=== PATIENT | female | born 1975 | race Caucasian/White ===

== ENCOUNTER → 2017-02-09 | Outpatient (CLI) | payer MEDICAID ==
--- NOTE | 2017-02-09 14:19 | REPMRS ---
Patient History The patient states she had a clinical breast exam in September 2016. Patient had first child at age 32. Family history of breast cancer in maternal aunt and colorectal cancer in maternal grandmother. Digital Mammo Screening Bilat: February 09, 2017 - Exam #: [id number] Bilateral CC and MLO view(s) were taken. Technologist: Arlen Thomas, Technologist Prior study comparison: December 30, 2015, bilateral digital mammo screening bilat performed at [facility]. October 27, 2014, bilateral digital mammo screening bilat performed at [facility]. FINDINGS: There are scattered fibroglandular densities. There has been no change in the appearance of the mammogram from the prior studies. There is a mild amount of residual fibroglandular tissue which is fairly symmetric. There is no interval development of dominant mass, architectural distortion, or clustered microcalcification suggestive of malignancy. ASSESSMENT: BI-RADS/ACR category 1 mammogram. Negative. Recommendation Routine screening mammogram in 1 year (for women over age 40). This mammogram was interpreted with the aid of an FDA-approved computer-aided dectection system. Electronically Signed By: Kasi Green MD 02/09/17 1099
== END ==
LOC: M RAD 13:43
PROVIDERS: ATTEND Obstetrics & Gynecology
DX: Z12.31 Encounter for screening mammogram for malignant neoplasm of breast (principal); Z80.3 Family history of malignant neoplasm of breast

== ENCOUNTER → 2018-01-25 | Outpatient (REF) | payer BC, OTHER ==
[2018-01-25 13:26] LABS: HEMATOCRIT 39.5 % (36.0-47.0); HEMOGLOBIN 13.7 g/dl (12.0-15.5); MEAN CORPUSCULAR HEMOGLOBIN 32.2 pg (27.0-33.0); MEAN CORPUSCULAR HGB CONC 34.7 g/dl (32.0-36.5); MEAN CORPUSCULAR VOLUME 92.7 fl (80.0-96.0); PLATELET COUNT, AUTOMATED 257 10^3/uL (150-450); RED BLOOD COUNT 4.26 10^6/uL (4.00-5.40); RED CELL DISTRIBUTION WIDTH 12.1 % (11.5-14.5); WHITE BLOOD COUNT 6.5 10^3/uL (4.0-10.0)
[2018-01-25 14:11] LABS: FOLLICLE STIMULATING HORMONE 18.9 mIU/mL
[2018-01-25 14:21] LABS: LUTEINIZING HORMONE 4.6 mIU/mL
[2018-01-27 00:06] LABS: TESTOSTERONE FREE (DIRECT) 2.2 pg/mL (0.0-4.2)
== END ==
LOC: M LAB REF 12:35
DX: N92.1 Excessive and frequent menstruation with irregular cycle (principal); N94.5 Secondary dysmenorrhea; E34.9 Endocrine disorder, unspecified
CPT/HCPCS: 83001

== ENCOUNTER → 2018-07-08 | Outpatient (REF) | payer MEDICARE ==
[2018-07-08 12:25] LABS: ALBUMIN 3.7 GM/DL (3.2-5.2); ALBUMIN/GLOBULIN RATIO 1.09 (1.00-1.93); ALKALINE PHOSPHATASE 58 U/L (45-117); ALT/SGPT 31 U/L (12-78); ANION GAP 9 MEQ/L (8-16); AST/SGOT 16 U/L (7-37); BILIRUBIN,TOTAL 0.9 MG/DL (0.2-1.0); BLOOD UREA NITROGEN 13 MG/DL (7-18); CALCIUM LEVEL 8.8 MG/DL (8.5-10.1); CARBON DIOXIDE LEVEL 26 MEQ/L (21-32); CHLORIDE LEVEL 104 MEQ/L (98-107); CHOLESTEROL LEVEL 198 MG/DL (<200); CREATININE FOR GFR 0.65 MG/DL (0.55-1.30); GLOMERULAR FILTRATION RATE > 60.0 (>58); GLUCOSE, FASTING 87 MG/DL (70-100); HDL CHOLESTEROL 50 MG/DL (>40); LDL CHOLESTEROL 136 MG/DL (<100); NON-HDL-C 148 MG/DL; POTASSIUM SERUM 4.3 MEQ/L (3.5-5.1); SODIUM LEVEL 139 MEQ/L (136-145); TOTAL PROTEIN 7.1 GM/DL (6.4-8.2); TRIGLYCERIDES LEVEL 61 MG/DL (<150)
== END ==
LOC: M SFHCCLAY 07:52
DX: Z00.00 Encounter for general adult medical examination without abnormal findings (principal); G44.89 Other headache syndrome; Z13.220 Encounter for screening for lipoid disorders; Z82.49 Family history of ischemic heart disease and other diseases of the circulatory system; Z78.9 Other specified health status
CPT/HCPCS: 80053

== ENCOUNTER 2018-08-07 06:59 | Day surgery (SDC) | payer OTHER ==
[~2018-08-07 06:59] MED LIST: LIDOCAINE 1% MDV 20ML VIAL SQ
[2018-08-07] MEDS ORDERED: LR 1,000 ML IV (07:15)
[2018-08-07 07:32] LABS: HEMATOCRIT 45.8 % (36.0-47.0); HEMOGLOBIN 15.4 g/dl (12.0-15.5); MEAN CORPUSCULAR HEMOGLOBIN 30.1 pg (27.0-33.0); MEAN CORPUSCULAR HGB CONC 33.6 g/dl (32.0-36.5); MEAN CORPUSCULAR VOLUME 89.6 fl (80.0-96.0); PLATELET COUNT, AUTOMATED 287 10^3/uL (150-450); RED BLOOD COUNT 5.11 10^6/uL (4.00-5.40); RED CELL DISTRIBUTION WIDTH 12.3 % (11.5-14.5)
[2018-08-07 07:50] LABS: ANION GAP 7 MEQ/L (8-16); BLOOD UREA NITROGEN 8 MG/DL (7-18); CALCIUM LEVEL 8.8 MG/DL (8.5-10.1); CARBON DIOXIDE LEVEL 26 MEQ/L (21-32); CHLORIDE LEVEL 105 MEQ/L (98-107); CREATININE FOR GFR 0.64 MG/DL (0.55-1.30); GLOMERULAR FILTRATION RATE > 60.0 (>58); GLUCOSE, FASTING 109 MG/DL (70-100); POTASSIUM SERUM 4.1 MEQ/L (3.5-5.1); SODIUM LEVEL 138 MEQ/L (136-145)
[2018-08-07] MEDS ORDERED: dexameTHASONE 4 MG/ML 1ML VIAL (J1100) As Ordered (07:50)
[2018-08-07] MEDS ORDERED: ROCURONIUM BROMIDE 50 MG/5 ML VIAL As Ordered ×2 (07:50→12:02)
[2018-08-07] MEDS ORDERED: PROPOFOL 200 MG/20 ML VIAL As Ordered (07:50)
[2018-08-07] MEDS ORDERED: MIDAZOLAM INJ 2 MG/2 ML VIAL (J2250) As Ordered (07:50)
[2018-08-07] MEDS ORDERED: HYDROmorphone HCL 2 MG/ML 1ML VIAL (J1170) As Ordered (07:50)
[2018-08-07] MEDS ORDERED: NEOSTIGMINE 10 MG/10 ML VIAL (J2710) As Ordered (07:50)
[2018-08-07] MEDS ORDERED: ONDANSETRON 4MG/2ML VIAL (J2405) As Ordered (07:50)
[2018-08-07] MEDS ORDERED: LIDOCAINE 2% INJ 100 MG/5 ML SDV (FOR ANES.) As Ordered (07:50)
[2018-08-07] MEDS ORDERED: GLYCOPYRROLATE INJ 0.2 MG/ML 2 ML VIAL As Ordered (07:50)
[2018-08-07] MEDS ORDERED: KETOROLAC 60 MG/2 ML VIAL (J1885) As Ordered (07:50)
[2018-08-07] MEDS ORDERED: fentaNYL 100 MCG/2 ML INJECTION (J3010) As Ordered (07:51)
[2018-08-07] MEDS: SCOPOLAMINE 1MG TRANSDERMAL PATCH TOP (09:15)
[2018-08-07] MEDS ORDERED: ACETAMINOPHEN 650 MG SUPP As Ordered (10:11)
[2018-08-07] MEDS: ACETAMINOPHEN 650 MG SUPP PR (10:58)
[2018-08-07] MEDS ORDERED: diphenhydrAMINE INJ 50MG/ML VIAL (J1200) As Ordered (11:17)
[2018-08-07] MEDS ORDERED: METOCLOPRAMIDE INJ 10MG/2ML VIAL (J2765) As Ordered (11:17)
[2018-08-07] MEDS: FLUORESCEIN 10% (100MG/ML) 5 ML VIAL As Ordered (12:17)
[2018-08-07] MEDS: BUPIVACAINE/EPIN 0.25% 30 ML VIAL As Ordered (12:42)
[2018-08-07] MEDS ORDERED: MEPERIDINE INJ 25 MG/ML VIAL (J2175) As Ordered (13:11)
[2018-08-07] MEDS: MEPERIDINE INJ 25 MG/ML VIAL (J2175) IV ×2 (13:13→13:18)
[2018-08-07] MEDS ORDERED: PERCOCET 5MG/325MG TAB PO ×2 (13:15→13:30)
[2018-08-07] MEDS ORDERED: METOCLOPRAMIDE INJ 10MG/2ML VIAL (J2765) IV (13:30)
[2018-08-07] MEDS ORDERED: ONDANSETRON 4MG/2ML VIAL (J2405) IV (13:30)
[2018-08-07] MEDS ORDERED: fentaNYL 100 MCG/2 ML INJECTION (J3010) IV (13:30)
[2018-08-07] MEDS: LR 1,000 ML IV ×2 (13:30→14:30)
[2018-08-07] MEDS ORDERED: KETOROLAC 30 MG/ML VIAL (J1885) IV (13:30)
[2018-08-07] MEDS: SIMETHICONE 80 MG CHEW TAB PO ×2 (17:03→23:32)
[2018-08-07] MEDS: IBUPROFEN 800 MG TAB PO ×2 (17:03→23:32)
[2018-08-08] MEDS: SIMETHICONE 80 MG CHEW TAB PO (06:06)
[2018-08-08] MEDS: IBUPROFEN 800 MG TAB PO (06:06)
== END 2018-08-08 09:05 | disposition home or self-care (01) ==
LOC: M SDC 06:59 → M PED 13:55
DX: N92.0 Excessive and frequent menstruation with regular cycle (principal); R10.2 Pelvic and perineal pain; N80.9 Endometriosis, unspecified; N73.9 Female pelvic inflammatory disease, unspecified; N72 Inflammatory disease of cervix uteri; F12.90 Cannabis use, unspecified, uncomplicated; Z98.51 Tubal ligation status; Z72.0 Tobacco use
CPT/HCPCS: 58571

== ENCOUNTER → 2018-09-16 | Outpatient (CLI) | payer OTHER ==
[~2018-09-16] MED LIST changes: +CLAR1TAB13 PO; +FLON1SPR; +IBUP80TA PO; -LIDOCAINE 1% MDV 20ML VIAL SQ; +MULT1TAB18 PO; +PERCOCET PO; +PROHANCE 279.3MG/ML 15ML VIAL (A9576) As Ordered ONE; +PROHANCE 279.3MG/ML 5ML VIAL (A9576) As Ordered ONE; +[UNRECOGNIZED DRUG - OTHER] SUBD; +[UNRECOGNIZED DRUG - OTHER] SUBD
--- NOTE | 2018-09-16 19:06 | REP ---
Bilateral breast MRI study without and with IV gadolinium: History: 20.4% lifetime breast cancer risk assessment by [employer]rer-Cuzick model. The history provided states microcalcifications. Comparison mammography is reviewed from March 08, 2018. Technique: 3 [place] MRI imaging was performed with a dedicated breast coil. Axial, coronal, and sagittal T1 and T2-weighted scans were obtained with and without fat saturation in the usual fashion. The study includes dynamically acquired post gadolinium enhanced imaging subtraction imaging. Maximal intensity projection and multiplanar re-formation imaging is included as well. The study was interpreted with the aid of [employer], an FDA approved computer-aided detection (CAD) software program, on a dedicated breast MRI work station. The gadolinium enhancement dose is 17.4 ml of intravenous ProHance. Findings: There are mild scattered fibroglandular elements bilaterally. There is no evidence of axillary adenopathy on either side. No significant breast cystic change is seen. High-resolution pre and postcontrast T1 and T2-weighted scans show no suspicious morphologic abnormality in either breast. Dynamically acquired sequential post contrast images show no suspicious area of enhancement and washout in either breast to suggest malignant focus. There is a minimal pattern of background parenchymal enhancement. Impression: BIRADS category one negative findings. Patient's whose breast cancer lifetime risk assessment is greater than 20% merit annual screening breast MRI scanning in addition to annual screening mammography. Electronically Signed by Tejinder Arcos MD 09/16/2018 07:51 P
== END ==
LOC: M RAD 15:20
PROVIDERS: ATTEND Obstetrics & Gynecology
DX: R92.0 Mammographic microcalcification found on diagnostic imaging of breast (principal)
CPT/HCPCS: A9576; C8908

== ENCOUNTER → 2019-04-24 | Outpatient (CLI) | payer OTHER ==
[~2019-04-24] MED LIST changes: -PROHANCE 279.3MG/ML 15ML VIAL (A9576) As Ordered ONE; -PROHANCE 279.3MG/ML 5ML VIAL (A9576) As Ordered ONE
--- NOTE | 2019-04-24 14:40 | REPMRS ---
Patient History The patient states she had a clinical breast exam in 2018. Patient had first child at age 32. Family history of breast cancer in maternal aunt, colorectal cancer in maternal grandmother. Digital Mammo Screening Bilat: April 24, 2019 - Exam #: [id number] Bilateral CC and MLO view(s) were taken. Technologist: Aleida Massey, Technologist Prior study comparison: March 08, 2018, bilateral digital mammo screening bilat performed at [facility]. February 09, 2017, bilateral digital mammo screening bilat performed at [facility]. December 30, 2015, bilateral digital mammo screening bilat performed at [facility]. FINDINGS: The breast tissue is almost entirely fat. There has been no change in the appearance of the mammogram from the prior studies. There is no interval development of dominant mass, architectural distortion, or grouped microcalcification typical of malignancy. 3-D tomosynthesis shows no additional findings. Assessment: BI-RADS/ACR category 1 mammogram. Negative Mammogram. Recommendation Breast MRI of both breasts in 6 months. Routine screening mammogram of both breasts in 1 year (for women over age 40). This patient's Lifetime Breast Cancer RIsk is estimated at 20.1 %. Annual screening Breast MRI scanniing is recommended for patient's whose lifetime risk assessment is over 20%. This mammogram was interpreted with the aid of an FDA-approved computer-aided dectection system. Electronically Signed By: Baldev Arcos MD 04/24/19 [id number]
== END ==
LOC: M RAD 10:38
PROVIDERS: ATTEND Obstetrics & Gynecology
DX: Z12.31 Encounter for screening mammogram for malignant neoplasm of breast (principal)

== ENCOUNTER → 2019-10-29 | Outpatient (CLI) | payer OTHER ==
[~2019-10-29] MED LIST changes: +PROHANCE 279.3MG/ML 15ML VIAL (A9576) As Ordered ONE; +PROHANCE 279.3MG/ML 5ML VIAL (A9576) As Ordered ONE
--- NOTE | 2019-10-30 08:34 | REP ---
Bilateral breast MRI study without and with IV gadolinium: History: Enhanced breast cancer screening. Breast cancer risk assessment score greater than 20%. Comparison mammography April 24, 2019. Comparison breast MRI study September 16, 2018. Technique: Three [place] MRI imaging was performed with a dedicated breast coil. Axial, coronal, and sagittal T1 and T2-weighted scans were obtained with and without fat saturation in the usual fashion. The study includes dynamically acquired post gadolinium enhanced imaging subtraction imaging. Maximal intensity projection and multiplanar re-formation imaging is included as well. The study was interpreted with the aid of [employer], an FDA approved computer-aided detection (CAD) software program, on a dedicated breast MRI work station. The gadolinium enhancement dose is 20 ml of intravenous ProHance. Findings: The breast parenchyma is predominately fat replaced. There are tiny normal appearing stable intramammary lymph nodes laterally on the left. There is no evidence of axillary adenopathy on either side. There is no evidence of significant cystic change. High-resolution pre and postcontrast T1 and T2-weighted scans show no suspicious morphologic abnormality in either breast. Dynamically acquired sequential post contrast images show no suspicious focus of enhancement and/or washout in either breast to suggest malignancy. Subtraction images show no additional abnormality. Impression: BIRADS category one negative findings. Electronically Signed by Tejinder Arcos MD 10/30/2019 10:29 A
== END ==
LOC: M RAD 14:56
PROVIDERS: ATTEND Obstetrics & Gynecology
DX: R92.0 Mammographic microcalcification found on diagnostic imaging of breast (principal)
CPT/HCPCS: 77047; A9576

== ENCOUNTER → 2020-05-28 | Outpatient (CLI) | payer OTHER ==
[~2020-05-28] MED LIST changes: -PROHANCE 279.3MG/ML 15ML VIAL (A9576) As Ordered ONE; -PROHANCE 279.3MG/ML 5ML VIAL (A9576) As Ordered ONE
--- NOTE | 2020-05-28 14:58 | REPMRS ---
Patient History The patient states she had a clinical breast exam in 2019. Patient had first child at age 32. Family history of breast cancer in maternal aunt, colorectal cancer in maternal grandmother. Taking hormonal contraceptives. Digital Woman Screen Mammo: May 28, 2020 - Exam #: [id number] Bilateral CC and MLO view(s) were taken. Technologist: Arlen Thomas, Technologist Prior study comparison: April 24, 2019, bilateral digital mammo screening bilat, performed at [facility]. March 08, 2018, bilateral digital mammo screening bilat, performed at [facility]. February 09, 2017, bilateral digital mammo screening bilat, performed at [facility]. FINDINGS: The breast tissue is almost entirely fat. The Volpara volumetric breast density category is: A. There has been no change in the appearance of the mammogram from the prior studies. There is no interval development of dominant mass, architectural distortion, or grouped microcalcification typical of malignancy. 3-D tomosynthesis shows no additional findings. Assessment: BI-RADS/ACR category 1 mammogram. Negative Mammogram. Recommendation Routine screening mammogram of both breasts in 1 year (for women over age 40). This patient's Lifetime Breast Cancer RIsk is estimated at 19.8 %. This mammogram was interpreted with the aid of an FDA-approved computer-aided dectection system. Electronically Signed By: Baldev Arcos MD 05/28/20 [id number]
== END ==
LOC: M WHC 10:17
PROVIDERS: ATTEND Obstetrics & Gynecology
DX: Z12.31 Encounter for screening mammogram for malignant neoplasm of breast (principal); Z79.3 Long term (current) use of hormonal contraceptives

== ENCOUNTER → 2020-11-12 | Outpatient (REF) | payer OTHER ==
[2020-11-12 11:46] LABS: BLOOD UREA NITROGEN 11 MG/DL (7-18); CALCIUM LEVEL 8.6 MG/DL (8.5-10.1); CARBON DIOXIDE LEVEL 29 MEQ/L (21-32); CHLORIDE LEVEL 107 MEQ/L (98-107); CHOLESTEROL LEVEL 229 MG/DL (<200); CHOLESTEROL RISK RATIO 5.325 (<5); GLOMERULAR FILTRATION RATE > 60.0 (>58); GLUCOSE, FASTING 96 MG/DL (70-100); HDL CHOLESTEROL 43 MG/DL (>40); LDL CHOLESTEROL 164 MG/DL (<100); NON-HDL-C 186 MG/DL; POTASSIUM SERUM 4.6 MEQ/L (3.5-5.1); SODIUM LEVEL 140 MEQ/L (136-145); TRIGLYCERIDES LEVEL 110 MG/DL (<150)
== END ==
LOC: M SFHCCLAY 07:00
PROVIDERS: ATTEND Family Medicine
DX: Z00.00 Encounter for general adult medical examination without abnormal findings (principal); Z13.220 Encounter for screening for lipoid disorders; Z13.1 Encounter for screening for diabetes mellitus

== ENCOUNTER → 2020-11-29 | Outpatient (REF) | payer OTHER ==
[2020-11-29 14:14] LABS: ESTRADIOL 68.7 PG/ML; FOLLICLE STIMULATING HORMONE 24.9 mIU/mL; LUTEINIZING HORMONE 23.9 mIU/mL; PROGESTERONE 0.23 NG/ML
[2020-11-30 21:07] LABS: TESTOSTERONE FREE (DIRECT) 4.5 pg/mL (0.0-4.2)
== END ==
LOC: M LABDRAWC 11:21
PROVIDERS: ATTEND Obstetrics & Gynecology
DX: N95.1 Menopausal and female climacteric states (principal); E34.9 Endocrine disorder, unspecified; N94.5 Secondary dysmenorrhea

== ENCOUNTER → 2021-12-07 | Outpatient (REF) | payer OTHER ==
[2021-12-07 12:04] LABS: CHOLESTEROL RISK RATIO 4.5 (<5)
== END ==
LOC: M SFHCCLAY 07:30
PROVIDERS: ATTEND Family Medicine
DX: Z00.00 Encounter for general adult medical examination without abnormal findings (principal); E78.5 Hyperlipidemia, unspecified

== ENCOUNTER → 2022-04-07 | Outpatient (CLI) | payer OTHER | LOC: M WHC 15:13 | PROVIDERS: ATTEND Obstetrics & Gynecology | DX: Z12.31 Encounter for screening mammogram for malignant neoplasm of breast (principal) ==

== ENCOUNTER → 2022-12-06 | Outpatient (REF) | payer OTHER ==
[2022-12-06 12:07] LABS: ALBUMIN 3.9 G/DL (3.2-5.2); ALKALINE PHOSPHATASE 60 U/L (46-116); ALT/SGPT 43 U/L (7.0-40); AST/SGOT 24 U/L (<34); BILIRUBIN,TOTAL 0.5 MG/DL (0.3-1.2); BLOOD UREA NITROGEN 12 MG/DL (9-23); CALCIUM LEVEL 9.4 MG/DL (8.5-10.1); CARBON DIOXIDE LEVEL 29 MMOL/L (20-31); CHLORIDE LEVEL 106 MMOL/L (98-107); CHOLESTEROL LEVEL 232 MG/DL (<200); CHOLESTEROL RISK RATIO 4.44 (<5); CREATININE FOR GFR 0.47 MG/DL (0.55-1.30); GLOMERULAR FILTRATION RATE > 60.0 (>58); GLUCOSE, FASTING 95 MG/DL (60-100); HDL CHOLESTEROL 52.2 MG/DL (>40); LDL CHOLESTEROL 164.2 MG/DL (<100); NON-HDL-C 179.8 MG/DL; POTASSIUM SERUM 4.5 MMOL/L (3.5-5.1); SODIUM LEVEL 140 MMOL/L (136-145); TRIGLYCERIDES LEVEL 78 MG/DL (<150)
== END ==
LOC: M SFHCCLAY 08:44
PROVIDERS: ATTEND Nurse Practitioner Family
DX: E78.5 Hyperlipidemia, unspecified (principal); F41.8 Other specified anxiety disorders

== ENCOUNTER → 2023-04-20 | Outpatient (CLI) | payer OTHER, SELFPAY | LOC: M WHC 13:41 | PROVIDERS: ATTEND Obstetrics & Gynecology | DX: Z12.31 Encounter for screening mammogram for malignant neoplasm of breast (principal) ==

== ENCOUNTER → 2023-12-11 | Outpatient (REF) | payer OTHER ==
[2023-12-11 12:24] LABS: ALBUMIN 3.9 G/DL (3.2-5.2); ALKALINE PHOSPHATASE 62 U/L (46-116); ALT/SGPT 39 U/L (7.0-40); AST/SGOT 20 U/L (<34); BILIRUBIN,TOTAL 0.4 MG/DL (0.3-1.2); BLOOD UREA NITROGEN 13 MG/DL (9-23); CALCIUM LEVEL 9.6 MG/DL (8.5-10.1); CARBON DIOXIDE LEVEL 29 MMOL/L (20-31); CHLORIDE LEVEL 109 MMOL/L (98-107); CHOLESTEROL LEVEL 237 MG/DL (<200); CHOLESTEROL RISK RATIO 4.89 (<5); CREATININE FOR GFR 0.54 MG/DL (0.55-1.30); GLOMERULAR FILTRATION RATE > 60.0 (>58); GLUCOSE, FASTING 106 MG/DL (60-100); HDL CHOLESTEROL 48.4 MG/DL (>40); LDL CHOLESTEROL 171.6 MG/DL (<100); NON-HDL-C 188.6 MG/DL; POTASSIUM SERUM 4.5 MMOL/L (3.5-5.1); SODIUM LEVEL 138 MMOL/L (136-145); TOTAL PROTEIN 6.9 G/DL (5.7-8.2); TRIGLYCERIDES LEVEL 85 MG/DL (<150)
== END ==
LOC: M SFHCCLAY 08:40
PROVIDERS: ATTEND Nurse Practitioner Family
DX: E78.5 Hyperlipidemia, unspecified (principal)

== ENCOUNTER 2024-03-07 10:20 | Day surgery (SDC) | payer OTHER ==
[~2024-03-07] VITALS: Ht 165.1 cm; Wt 98.0 kg
[~2024-03-07 10:20] MED LIST changes: +MULTTAB61 PO; +NS 1,000 ML IV ONE
[2024-03-07 13:14] VITALS: TEMP 97.9
[2024-03-07 13:27] VITALS: BP 132/65; O2SAT 97
== END 2024-03-07 13:35 | disposition home or self-care (01) ==
LOC: M OPP 10:20
PROVIDERS: ATTEND Surgery
DX: Z12.11 Encounter for screening for malignant neoplasm of colon (principal); Z80.0 Family history of malignant neoplasm of digestive organs; D12.6 Benign neoplasm of colon, unspecified; K64.8 Other hemorrhoids; K64.4 Residual hemorrhoidal skin tags; K57.30 Diverticulosis of large intestine without perforation or abscess without bleeding; F17.200 Nicotine dependence, unspecified, uncomplicated

== ENCOUNTER → 2024-07-29 | Outpatient (CLI) | payer OTHER ==
[~2024-07-29] MED LIST changes: -NS 1,000 ML IV ONE
== END ==
LOC: M WHC 07:06
PROVIDERS: ATTEND Obstetrics & Gynecology
DX: Z12.31 Encounter for screening mammogram for malignant neoplasm of breast (principal)

== ENCOUNTER → 2024-10-15 | Outpatient (REF) | payer OTHER ==
[2024-10-15 11:59] LABS: ESTRADIOL 22.1 PG/ML; LUTEINIZING HORMONE 18.6 mIU/ML
[2024-10-15 12:00] LABS: CORTISOL AM 8.6 UG/DL (4.3-22.4); PROGESTERONE 0.46 NG/ML
[2024-10-16 13:02] LABS: SEX HORMONE BINDING GLOBULIN 71 nmol/L (17-124)
== END ==
LOC: M LABDRAWC 10:44
PROVIDERS: ATTEND Obstetrics & Gynecology
DX: N95.1 Menopausal and female climacteric states (principal); F52.0 Hypoactive sexual desire disorder; E34.9 Endocrine disorder, unspecified

== ENCOUNTER → 2024-12-25 | Outpatient (REF) | payer OTHER ==
[2024-12-25 13:55] LABS: HEMATOCRIT 47.4 % (36.0-47.0); HEMOGLOBIN 15.7 g/dl (12.0-15.5); MEAN CORPUSCULAR HEMOGLOBIN 31.1 pg (27.0-33.0); MEAN CORPUSCULAR HGB CONC 33.1 g/dl (32.0-36.5); MEAN CORPUSCULAR VOLUME 93.9 fl (80.0-96.0); PLATELET COUNT, AUTOMATED 255 10^3/uL (150-450); RED BLOOD COUNT 5.05 10^6/uL (4.00-5.40); WHITE BLOOD COUNT 8.9 10^3/uL (4.0-10.0)
[2024-12-25 14:27] LABS: ALBUMIN 4.1 G/DL (3.2-5.2); ALKALINE PHOSPHATASE 81 U/L (35-104); ALT/SGPT 29 U/L (7.0-40); AST/SGOT 18 U/L (<34); BILIRUBIN,TOTAL 0.7 MG/DL (0.3-1.2); BLOOD UREA NITROGEN 10 MG/DL (9-23); CALCIUM LEVEL 9.5 MG/DL (8.5-10.1); CARBON DIOXIDE LEVEL 27 MMOL/L (20-31); CHLORIDE LEVEL 105 MMOL/L (98-107); CHOLESTEROL LEVEL 237 MG/DL (<200); CHOLESTEROL RISK RATIO 4.55 (<5); GLOMERULAR FILTRATION RATE > 90.0 (>58); GLUCOSE, FASTING 97 MG/DL (60-100); LDL CHOLESTEROL 166.6 MG/DL (<100); POTASSIUM SERUM 4.4 MMOL/L (3.5-5.1); SODIUM LEVEL 140 MMOL/L (136-145); TOTAL PROTEIN 7.5 G/DL (5.7-8.2); TRIGLYCERIDES LEVEL 92 MG/DL (<150)
== END ==
LOC: M SFHCCLAY 07:37
PROVIDERS: ATTEND Nurse Practitioner Family
DX: Z00.00 Encounter for general adult medical examination without abnormal findings (principal); E78.5 Hyperlipidemia, unspecified

== ENCOUNTER → 2024-12-25 | Outpatient (REF) | payer OTHER ==
[2024-12-25 14:28] LABS: FOLLICLE STIMULATING HORMONE 26.9 mIU/ML
[2024-12-25 14:31] LABS: ESTRADIOL 71.4 PG/ML; LUTEINIZING HORMONE 17.1 mIU/ML
[2024-12-25 14:32] LABS: PROGESTERONE 0.47 NG/ML
== END ==
LOC: M LABDRAWC 12:39
PROVIDERS: ATTEND Obstetrics & Gynecology
DX: N95.1 Menopausal and female climacteric states (principal); F52.0 Hypoactive sexual desire disorder; E34.9 Endocrine disorder, unspecified

== ENCOUNTER → 2025-01-21 | Outpatient (CLI) | payer OTHER | LOC: M WHC 08:53 | PROVIDERS: ATTEND Nurse Practitioner Family | DX: N63.42 Unspecified lump in left breast, subareolar (principal) ==

== ENCOUNTER → 2025-04-09 | Outpatient (REF) | payer OTHER ==
[2025-04-09 13:54] LABS: ESTRADIOL 52.9 PG/ML; LUTEINIZING HORMONE 15.6 mIU/ML; PROGESTERONE 0.39 NG/ML
[2025-04-14 22:07] LABS: TESTOSTERONE FREE (DIRECT) 2.4 pg/mL (0.1-6.4); TESTOSTERONE TOTAL FOR T&D 29.0 ng/dL (2-45)
== END ==
LOC: M LABDRAWC 12:58
PROVIDERS: ATTEND Obstetrics & Gynecology
DX: N95.1 Menopausal and female climacteric states (principal); F52.0 Hypoactive sexual desire disorder; E34.9 Endocrine disorder, unspecified

== ENCOUNTER → 2025-08-03 | Outpatient (CLI) | payer OTHER | LOC: M WHC 16:23 | PROVIDERS: ATTEND Nurse Practitioner Family | DX: Z12.31 Encounter for screening mammogram for malignant neoplasm of breast (principal) ==